=== PATIENT | female | born 1955 | race Caucasian/White ===

== ENCOUNTER 2020-07-29 04:50 | Emergency (ER) | payer MEDICARE, OTHER ==
[~2020-07-29] VITALS: Ht 157.5 cm; Wt 73.5 kg
[~2020-07-29 04:50] MED LIST: 5-HTP50 MG; AMBIEN 10 MG TA10 MG PO; CYMBALTA30 MG PO; FISH OIL500 MG PO; FLONASE16 GM NS; HRT BASE1 GM MC; MEDROLDOSEPACK PO; MULTIVITAMINS1 EAC7 PO; NORCO 5-325 TA1 EACH PO; PERCOCET 5-3251 EACH PO; VIVELLE-DOT1 EAC1 TD; ZOLOFT25 MG PO; ZYRTEC10 MG PO
[2020-07-29] MEDS ORDERED: HIZENTRA10 GM/50 M (05:23)
[2020-07-29] MEDS ORDERED: TRAZODONE HCL50 MG PO (05:24)
[2020-07-29] MEDS ORDERED: SERTRALINE HCL50 MG PO (05:24)
[2020-07-29] MEDS ORDERED: LEVO-T50 MCG PO (05:25)
[2020-07-29] MEDS ORDERED: XANAX 0.5 MG0.5 M1 PO (05:26)
[2020-07-29] MEDS ORDERED: TRAMADOL 50 MG50 MG PO (05:26)
[2020-07-29] MEDS ORDERED: PREDNISONE 5 MG5 M1 PO (05:27)
[2020-07-29] MEDS ORDERED: IMITREX (05:28)
[2020-07-29] MEDS ORDERED: IBUPROFEN 800800 M1 PO (05:29)
[2020-07-29] MEDS ORDERED: HYDROXYZINE HCL25 M2 PO (05:29)
[2020-07-29] MEDS ORDERED: VOLTAREN GEL 1100 G1 TOP (05:30)
[2020-07-29] MEDS ORDERED: FLONASE 0.05%50 MCG NARES (05:30)
[2020-07-29] MEDS ORDERED: BENZONATATE100 MG PO (05:31)
[2020-07-29] MEDS ORDERED: ALBUTEROL2.5 MG/0.1 INH (05:31)
[2020-07-29] MEDS ORDERED: EPIPEN0.3 MG/0.1 IM (05:31)
[2020-07-29 05:34] LABS: BE -2.7 mmol/L (-2 to +3); PO2 80.1 mmHg (75.0-100.0); pH 7.455 (7.340-7.450)
[2020-07-29 05:39] LABS: HEMATOCRIT 39.6 % (37.0-47.0); HEMOGLOBIN 13.3 gm/dL (12.0-15.0); MCH 30.5 pg (26.0-34.0); MCHC 33.7 g/dL (28.0-37.0); MCV 90.6 fL (80.0-100.0); MPV 7.9 fl. (7.2-11.1); NUCLEATED RBCS 0 /100WBC; PLATELET COUNT* 292 thou/uL (150-400); RBC 4.38 mil/uL (4.20-5.00); RDW-CV 13.1 % (10.5-14.5); WBC 11.9 thou/uL (4.0-11.0)
[2020-07-29 05:40] LABS: INFLUENZA A ANTIGEN Negative (Negative); INFLUENZA B ANTIGEN Negative (Negative)
[2020-07-29 05:43] LABS: CREATININE 0.8 mg/dL (0.6-1.3); POTASSIUM 3.5 mmol/L (3.5-5.1)
[2020-07-29 05:48] LABS: ALBUMIN 3.2 g/dL (3.4-5.0); MAGNESIUM 1.9 mg/dL (1.8-2.4); TOTAL BILIRUBIN 0.4 mg/dL (<0.1-1.0); TOTAL PROTEIN 7.9 g/dL (6.4-8.2)
[2020-07-29 05:59] LABS: URINE BILIRUBIN NEGATIVE (Negative); URINE BLOOD TRACE (Negative); URINE CLARITY CLEAR; URINE COLOR YELLOW; URINE GLUCOSE-RANDOM NEGATIVE (Negative); URINE KETONES NEGATIVE (Negative); URINE LEUKOCYTES-REFLEX NEGATIVE (Negative); URINE NITRITE-REFLEX NEGATIVE (Negative); URINE PROTEIN NEGATIVE (Negative); URINE SPECIFIC GRAVITY >= 1.030 (1.005-1.030); URINE UROBILINOGEN 0.2 E.U./dl (0.2-1.0)
[2020-07-29 07:54] LABS: ABSOLUTE LYMPHOCYTES 1.7 thou/uL (0.8-5.3); ABSOLUTE MONOCYTES 0.6 thou/uL (0.0-1.2); ABSOLUTE NEUTROPHILS 9.6 thou/uL (1.6-8.1); METAMYELOCYTES 4 %; PLATELET ESTIMATE ADEQUATE
[2020-07-29 10:21] VITALS: BP 136/76
--- NOTE | 2020-07-29 10:51 | EKG ---
[place] [address] ELECTROCARDIOGRAM REPORT Name: NATALIE YEEPAIGE VILAE Room: [facility]#: [id number] Admission: 07/29/20 Attend Phys: Discharge: 07/29/20 Date of : 57 Date of Service: 07/29/208 Report #: [id number] THIS REPORT FOR: //name// [facility] ED Test Date: 2020-07-29 Test Time: 04:58:10 Pat Name: POPPY YEE Department: Room: Gender: Executive Coach: : 1955 Requested By: Concepción Euceda Order Number: [id number] MD: Giles Bermeo Measurements Intervals [place] Rate: 93 P: -9 IN: 168 QRS: 50 QRSD: 77 T: 40 QT: 324 QTc: 403 Interpretive Statements Sinus rhythm Baseline wander in lead(s) V3 No previous ECG available for comparison Electronically Signed On 07-29-2020 10:51:40 [employer]IST by Giles Bermeo [email or web address] <ELECTRONICALLY SIGNED> By: Giles Bermeo MD, [facility] 07/29/20 1051 [id number] Giles Bermeo MD, FACC /EPI
== END 2020-07-29 10:23 | disposition short-term general hospital (02) ==
LOC: M.ERS 04:50
PROVIDERS: Personal Emergency Response Attendant
DX: U07.1 COVID-19 (principal); R53.1 Weakness; M79.7 Fibromyalgia; J45.909 Unspecified asthma, uncomplicated; K58.9 Irritable bowel syndrome, unspecified; Z90.711 Acquired absence of uterus with remaining cervical stump